=== PATIENT | male | born 1960 | race Caucasian/White ===

== ENCOUNTER 2023-11-30 06:56 | Day surgery (SDC) | payer OTHER ==
--- NOTE | 2023-11-29 14:47 | RAD REPORT ---
EXAM DESCRIPTION: RAD - Chest Pa And Lat (2 Views) - 11/29/2023 2:42 pm CLINICAL HISTORY: pre op pending hernia repair Chest pain. COMPARISON: ABDOMEN 1 VIEW KUB dated 05/04/2013; ABDOMEN 1 VIEW KUB dated 04/20/2013; ABDOMEN 1 VIEW K UB dated 03/30/2013; ABDOMEN 1 VIEW KUB dated 03/02/2013 FINDINGS: The lungs are clear. The heart is upper limit of normal in size. No displaced fractures. IMPRESSION: No acute or concerning finding suspected.
[2023-11-29 15:14] LABS: Absolute Eosinophils 0.1 K/uL (0-0.5); Absolute Lymphocytes (CBC) 1.3 K/uL (0.7-4.9); Absolute Monocytes 0.8 K/uL (0.1-1.3); Absolute Neutrophil 5.6 K/uL (1.8-8.0); Basophils % 0.5 % (0-1.3); Eosinophils % 1.4 % (0-4.4); Hematocrit 42.2 % (39.6-49.0); Hemoglobin 14.4 g/dL (13.6-17.9); Lymphocytes % 16.2 % (15.3-44.8); MCH 30.2 pg (27.0-35.0); MCV 88.7 fL (80-100); MPV 7.8 fL (7.6-11.3); Monocytes % 10.1 % (3.3-12.3); Neutrophils % 71.8 % (41.7-73.7); Platelets 314 thou/uL (152-406); RBC Red Blood Cell Count 4.76 M/uL (4.33-5.43); Red Cell Distribution Width 13.3 % (12.1-15.2)
[2023-11-29 15:22] LABS: Anion Gap 6.8 mEq/L (5.0-15.0); Potassium 3.8 mEq/L (3.5-5.1)
[2023-11-30] MEDS: Ringers Lactate 1,000 ML IV ONE (07:26)
[2023-11-30] MEDS ORDERED: FENTANYL CITR 100 MCG/2 ML ONE (08:01)
[2023-11-30] MEDS ORDERED: propofoL 200 MG/20 ML VIAL IV ONE (08:01)
[2023-11-30] MEDS ORDERED: ONDANSETRON 4 MG/2 ML VIAL ONE (08:01)
[2023-11-30] MEDS ORDERED: LIDOCAINE 2% MPF 5 ML VIAL ONE (08:01)
[2023-11-30] MEDS ORDERED: ROCURONIUM 50 MG/5 ML VIAL IV ONE (08:01)
[2023-11-30] MEDS ORDERED: MIDAZOLAM HCL 2 MG/2 ML INJ ONE (08:01)
[2023-11-30] MEDS ORDERED: SUCCINYLCHOLINE 20 MG/ML (10 ML) IV ONE (08:06)
[2023-11-30] MEDS ORDERED: SUGAMMADEX SODIUM 200 MG/2 ML VIAL IV ONE (08:06)
[2023-11-30] MEDS ORDERED: EPHEDRINE SULF 50 MG/ML VIAL ONE (08:40)
[2023-11-30] MEDS ORDERED: dexAMETHasone 10 MG/ML VIAL ONE (08:41)
[2023-11-30] MEDS: CEFAZOLIN SODIUM 1 GM/VIAL ONE (08:43)
--- NOTE | 2023-11-30 10:01 | P.BOP ---
Preoperative diagnosis: incarcerated left inguinal hernia Postoperative diagnosis: same Primary procedure: Open repair of incarcerated left inguinal hernia with mesh Estimated blood loss: <10cc Specimen: none Findings: as above Anesthesia: General Complications: None Transferred to: Recovery Room Condition: Good
[2023-11-30 10:21] VITALS: TEMP 97
[2023-11-30] MEDS ORDERED: Ringers Lactate 1,000 ML IV ONE (10:35)
[2023-11-30] MEDS: HYDROCODONE/APAP 7.5/325 MG TAB ONE (11:23)
[2023-11-30 12:51] VITALS: BP 144/70; O2SAT 98
--- NOTE | 2023-11-30 13:10 | EKG ---
Test Date: 2023-11-29 Test Time: 14:07:45 [employer] Clerk: PREO MEASUREMENT RESULTS: Intervals: Rate: 56 FL: 156 QRSD: 90 QT: 410 QTc: 395 [place]: P: 48 FL: 156 QRS: -14 T: -1 INTERPRETIVE STATEMENTS: Sinus bradycardia Otherwise normal ECG No previous ECG available for comparison Electronically Signed On 11-30-23 13:06:16 CDT by Tay Hawthorne
== END 2023-11-30 11:57 | disposition home or self-care (01) ==
LOC: OR 06:56
PROVIDERS: ATTEND Surgery
PROC: 0YU60JZ Supplement Left Inguinal Region with Synthetic Substitute, Open Approach (ICD-10-PCS; principal; 2023-11-30 08:15)
DX: K40.30 Unilateral inguinal hernia, with obstruction, without gangrene, not specified as recurrent (principal); I10 Essential (primary) hypertension
CPT/HCPCS: 36415; 71046; 80048; 85025; 93005; J0690; J1100; J2001; J2250; J2405; J2704; J3010; J7120